=== PATIENT | male | born 1970 | race Caucasian/White ===

== ENCOUNTER 2024-04-13 01:26 | Emergency (ER) | payer MEDICAID, OTHER ==
[~2024-04-13] VITALS: Ht 177.8 cm; Wt 98.6 kg
[2024-04-13 01:34] VITALS: BP 137/102; PULSE 93; RESP 19; TEMP 98.7; O2SAT 100
== END 2024-04-13 02:45 | disposition home or self-care (01) ==
LOC: ER 01:26
DX: F10.129 Alcohol abuse with intoxication, unspecified (principal); Y90.9 Presence of alcohol in blood, level not specified
CPT/HCPCS: 99281